=== PATIENT | male | born 1950 | race Caucasian/White ===

== ENCOUNTER 2022-12-02 19:58 | Emergency (ER) | payer OTHER ==
[~2022-12-02] VITALS: Ht 167.6 cm; Wt 81.0 kg
[2022-12-02 20:04] VITALS: BP 146/92
[2022-12-02 20:30] VITALS: BP 146/88
[2022-12-02 20:35] VITALS: BP 146/88
== END 2022-12-02 20:45 | disposition home or self-care (01) | DRG 125 ==
LOC: ED 19:58
DX: H10.11 Acute atopic conjunctivitis, right eye (principal); I10 Essential (primary) hypertension; E78.00 Pure hypercholesterolemia, unspecified; Z85.46 Personal history of malignant neoplasm of prostate